=== PATIENT | female | born 1960 | race Caucasian/White ===

== ENCOUNTER 2021-11-23 19:02 | Emergency (ER) | payer BC, OTHER ==
[2021-11-23] MEDS ORDERED: Acetaminophen/HYDROcodone 325-5 MG Tab PO ONE (19:03)
[2021-11-23] MEDS ORDERED: Ketorolac 30 MG/ML SDV IM ONE (19:33)
== END 2021-11-23 20:39 | disposition home or self-care (01) ==
LOC: FB.ED 19:02
DX: S22.32XA Fracture of one rib, left side, initial encounter for closed fracture (principal); Z79.899 Other long term (current) drug therapy; X50.1XXA Overexertion from prolonged static or awkward postures, initial encounter
CPT/HCPCS: 93005; 93010; 96372; 99282; 99283-25; A9270-GY; J1885